=== PATIENT | female | born 1980 | race Caucasian/White ===

== ENCOUNTER 2021-04-27 12:12 | Emergency (ER) | payer BC ==
[2021-04-27 12:29] VITALS: RESP 18
[2021-04-27] MEDS ORDERED: METOCLOPRAMIDE 5 MG/ML 2 ML VIAL IVP STA (13:28)
[2021-04-27] MEDS ORDERED: diphenhydrAMINE 50 MG/ML 1 ML VIAL IVP STA (13:28)
[2021-04-27] MEDS ORDERED: SODIUM CHLORIDE 0.9% 2,000 ML IV STA (13:28)
[2021-04-27] MEDS ORDERED: KETOROLAC 15 MG/ML 1 ML VIAL IVP STA (13:28)
[2021-04-27 13:57] LABS: Albumin 4.8 g/dL (3.5-5.0); Calcium 10.2 mg/dL (8.4-10.2); Potassium 4.6 mmol/L (3.5-5.1); Total Bilirubin 0.9 mg/dL (0.2-1.3); Total Protein 8.1 g/dL (6.3-8.2)
[2021-04-27 14:08] LABS: C Reactive Protein 1.4 mg/dL (<1.0)
--- NOTE | 2021-04-27 14:14 | XR ---
EXAMINATION TYPE: XR chest 2V DATE OF EXAM: 04/27/2021 COMPARISON: NONE TECHNIQUE: PA and lateral views submitted. HISTORY: Cough FINDINGS: The lungs are clear and there is no pneumothorax, pleural effusion, or focal pneumonia. Heart size normal. No overt failure. Surgical clips right upper quadrant. IMPRESSION: 1. No acute process.
[2021-04-27 14:15] LABS: Basophils # (A) 0.1 k/uL (0-0.2); Basophils % (A) 0 %; Eosinophils % (A) 0 %; HCT 48.2 % (34.0-46.0); HGB 16.4 gm/dL (11.4-16.0); Lymphocytes # (A) 2.4 k/uL (1.0-4.8); Lymphocytes % (A) 15 %; MCH 30.8 pg (25.0-35.0); MCHC 33.9 g/dL (31.0-37.0); MCV 90.8 fL (80.0-100.0); Mean Platelet Volume 7.8; Monocytes # (A) 1.6 k/uL (0-1.0); Monocytes % (A) 10 %; Neutrophils # (A) 11.4 k/uL (1.3-7.7); Neutrophils % (A) 71 %; Platelet Count 298 k/uL (150-450); RBC 5.31 m/uL (3.80-5.40); RDW 12.4 % (11.5-15.5)
--- NOTE | 2021-04-27 14:33 | ED ---
General Adult HPI - General Chief complaint: Nausea/Vomiting/Diarrhea Stated complaint: Covid+, vomiting Time Seen by Provider: 04/27/21 13:15 Source: patient, family, RN notes reviewed Mode of arrival: wheelchair Limitations: no limitations - History of Present Illness Initial comments: 40-year-old female presents emergency Department chief complaint of nausea vomiting, COVID-19. Patient states that she is sent in by her employer who is [employer]. Patient states that she's been trying to take azithromycin, steroids, ivermectin. Patient states that she cannot keep anything down. Patient states that she's had no chest pain or shortness breath she has no localized abdominal pain. She states she has a headache, feels dehydrated. Patient states she's been trying Zofran at home with no relief of symptoms. - Related Data Home Medications Medication Instructions Recorded Confirmed ALPRAZolam [Xanax] 1 mg PO HS PRN 08/08/14 08/09/14 Cetirizine HCl [Zyrtec] 10 mg PO HS 08/08/14 08/09/14 Citalopram Hydrobromide [CeleXA] 10 mg PO HS 08/08/14 08/09/14 HYDROcodone/APAP 7.5-325MG [Gibson 1 tab PO Q8H PRN 08/08/14 08/09/14 7.5-325] Minocycline [Minocin] 100 mg PO HS 08/08/14 08/09/14 Previous Rx's Medication Instructions Recorded Hydrocodone/Acetaminophen [Gibson 1 - 2 each PO Q6HR PRN #60 tab 08/09/14 5-325] Ondansetron Odt [Zofran Odt] 4 mg PO Q8HR PRN #14 tab 04/27/21 Allergies Allergy/AdvReac Type Severity Reaction Status Date / Time acetaminophen Allergy Nausea & Verified 04/27/21 12:30 [From Darvocet-N] Vomiting Penicillins Allergy Rash/Hives. Verified 04/27/21 12:30 ITCHING. propoxyphene napsylate Allergy Nausea & Verified 04/27/21 12:30 [From Darvocet-N] Vomiting adhesive AdvReac Rash/Hives Verified 04/27/21 12:30 Review of Systems ROS Statement: Those systems with pertinent positive or pertinent negative responses have been documented in the HPI. ROS Other: All systems not noted in ROS Statement are negative. Past Medical History Additional Past Medical History / Comment(s): RECENT RLQ ABD PAIN WITH N & V. CHRONIC LOWER BACK PAIN. RENAL CALCULI. History of Any Multi-Drug Resistant Organisms: None Reported Past Surgical History: Orthopedic Surgery, Tonsillectomy Additional Past Surgical History / Comment(s): HAND SURGERY. D & C. [place]. REMOVAL OF RENAL CALCULI (PATIENT WAS NOT SURE OF PROCESS). Past Anesthesia/Blood Transfusion Reactions: Family History of Problems w/ Anesthesia, Postoperative Nausea & Vomiting (PONV) Additional Past Anesthesia/Blood Transfusion Reaction / Comment(s): FAMILY MEMBER HAVE N & V WITH ANESTHESIA Past Psychological History: Anxiety Smoking Status: Current every day smoker Past Alcohol Use History: None Reported Past Drug Use History: None Reported - Past Family History Mother Family Medical History: No Reported History General Exam Limitations: no limitations General appearance: alert, in no apparent distress Head exam: Present: atraumatic, normocephalic, normal inspection Eye exam: Present: normal appearance, PERRL, EOMI. Absent: scleral icterus, conjunctival injection, periorbital swelling ENT exam: Present: normal exam, normal oropharynx, mucous membranes moist Neck exam: Present: normal inspection, full ROM. Absent: tenderness, meningismus, lymphadenopathy Respiratory exam: Present: normal lung sounds bilaterally. Absent: respiratory distress, wheezes, rales, rhonchi, stridor Cardiovascular Exam: Present: regular rate, normal rhythm, normal heart sounds. Absent: systolic murmur, diastolic murmur, rubs, gallop, clicks GI/Abdominal exam: Present: soft, normal bowel sounds. Absent: distended, tenderness, guarding, rebound, rigid Course Vital Signs 04/27/21 12:23 Temperature 97.6 F Pulse Rate 80 Respiratory 18 Rate Blood Pressure 137/92 O2 Sat by Pulse 100 Oximetry Medical Decision Making - Medical Decision Making 40-year-old presented for nausea vomiting and covid 19 she was hydrated, given antiemetics feels greatly improved will be discharged in stable condition. - Lab Data Result diagrams: 04/27/21 13:37 04/27/21 13:37 Lab Results 04/27/21 04/27/21 04/27/21 Range/Units 13:37 13:37 14:07 WBC 16.0 H (3.8-10.6) k/uL RBC 5.31 (3.80-5.40) m/uL Hgb 16.4 H (11.4-16.0) gm/dL Hct 48.2 H (34.0-46.0) % MCV 90.8 (80.0-100.0) fL MCH 30.8 (25.0-35.0) pg MCHC 33.9 (31.0-37.0) g/dL RDW 12.4 (11.5-15.5) % Plt Count 298 (150-450) k/uL MPV 7.8 Neutrophils % 71 % Lymphocytes % 15 % Monocytes % 10 % Eosinophils % 0 % Basophils % 0 % Neutrophils # 11.4 H (1.3-7.7) k/uL Lymphocytes # 2.4 (1.0-4.8) k/uL Monocytes # 1.6 H (0-1.0) k/uL Eosinophils # 0.0 (0-0.7) k/uL Basophils # 0.1 (0-0.2) k/uL Manual Slide Review Performed Sodium 136 L (137-145) mmol/L Potassium 4.6 (3.5-5.1) mmol/L Chloride 100 (98-107) mmol/L Carbon Dioxide 27 (22-30) mmol/L Anion Gap 9 mmol/L BUN 21 H (7-17) mg/dL Creatinine 1.09 H (0.52-1.04) mg/dL Est GFR (CKD-EPI)AfAm 73 (>60 ml/min/1.73 sqM) Est GFR (CKD-EPI)NonAf 64 (>60 ml/min/1.73 sqM) Glucose 100 H (74-99) mg/dL Calcium 10.2 (8.4-10.2) mg/dL Total Bilirubin 0.9 (0.2-1.3) mg/dL AST 23 (14-36) U/L ALT 28 (4-34) U/L Alkaline Phosphatase 74 (38-126) U/L Lactate Dehydrogenase 353 (313-618) U/L C-Reactive Protein 1.4 H (<1.0) mg/dL Total Protein 8.1 (6.3-8.2) g/dL Albumin 4.8 (3.5-5.0) g/dL Urine Color Yellow Urine Appearance Cloudy H (Clear) Urine pH 6.0 (5.0-8.0) Ur Specific [place] 1.024 (1.001-1.035) Urine Protein Negative (Negative) Urine Glucose (UA) Negative (Negative) Urine Ketones 2+ H (Negative) Urine Blood Moderate H (Negative) Urine Nitrite Negative (Negative) Urine Bilirubin Negative (Negative) Urine Urobilinogen 2.0 (<2.0) mg/dL Ur Leukocyte Esterase Small H (Negative) Urine RBC 16 H (0-5) /hpf Urine WBC 4 (0-5) /hpf Ur Squamous Epith Cells 1 (0-4) /hpf Urine Bacteria Occasional H (None) /hpf Hyaline Casts 1 (0-2) /lpf Urine Mucus Rare H (None) /hpf Disposition Clinical Impression: Dehydration, COVID-19 Disposition: HOME SELF-CARE Condition: Stable Instructions (If sedation given, give patient instructions): Coronavirus Disease 2019 (COVID-19) Additional Instructions: Please return to the Emergency Department if symptoms worsen or any other concerns. Prescriptions: Ondansetron Odt [Zofran Odt] 4 mg PO Q8HR PRN #14 tab PRN Reason: Nausea Is patient prescribed a controlled substance at d/c from ED?: No Referrals: Dilip Noriega MD [Primary Care Provider] - 1-2 days Time of Disposition: 15:06
[2021-04-27 14:50] LABS: Appearance,Urine Cloudy (Clear); Bacteria,Urine Occasional /hpf; Bilirubin,Urine Negative (Negative); Blood,Urine Moderate (Negative); Color,Urine Yellow; Glucose,Urine (UA) Negative (Negative); Hyaline Casts,Urine 1 /lpf (0-2); Ketones,Urine 2+ (Negative); Leukocyte Esterase,Urine Small (Negative); Mucus,Urine Rare /hpf; Nitrite,Urine Negative (Negative); Protein,Urine Negative (Negative); RBC,Urine 16 /hpf (0-5); Specific Gravity,Urine 1.024 (1.001-1.035); Squamous Epithelial Cell,Urine 1 /hpf (0-4); WBC,Urine 4 /hpf (0-5)
[2021-04-27 15:15] VITALS: BP 129/89; PULSE 78; TEMP 97.7
== END 2021-04-27 15:13 | disposition home or self-care (01) ==
LOC: EC 12:12
DX: U07.1 COVID-19 (principal); E86.0 Dehydration; F41.9 Anxiety disorder, unspecified; F17.200 Nicotine dependence, unspecified, uncomplicated; Z79.899 Other long term (current) drug therapy
CPT/HCPCS: 36415; 80053; 82728; 83615; 85025; 86140; 81001; 71046; 99284; 96374; 96375 ×2; 96361; J1200; J2765; J1885

== ENCOUNTER → 2024-01-31 | Outpatient (CLI) | payer BC ==
--- NOTE | 2024-01-31 13:24 | XR ---
EXAMINATION TYPE: XR Hip Complete LT DATE OF EXAM: 01/31/2024 COMPARISON: 03/19/2010 HISTORY: 43-year-old female and 2 5.552, left hip pain TECHNIQUE: 2 views FINDINGS: Mild degenerative change of the left hip with some marginal spurring. Tiny degenerative labral ossifi cation versus os acetabuli superolateral aspect of the hip joint. Joint spaces relatively maintained. No acute fracture, subluxation, or dislocation seen. IMPRESSION: Mild early degenerative spurring at the left hip. No acute osseous abnormality seen. [facility], , 01/31/2024 1:21 PM
== END | disposition home or self-care (01) ==
LOC: RADXRMAIN 12:20
PROVIDERS: ATTEND Family Medicine
DX: M16.12 Unilateral primary osteoarthritis, left hip (principal)
CPT/HCPCS: 73502